=== PATIENT | male | born 1955 | race Caucasian/White ===

== ENCOUNTER 2019-03-07 11:01 | Outpatient (REF) | payer OTHER, SELFPAY ==
[2019-03-07 21:34] LABS: Anion Gap 9.7 mmol/L (3-11); BUN 27 mg/dL (7-18); CO2 26.3 mmol/L (21.0-32.0); CREATININE 1.26 mg/dL (0.70-1.30); Calcium 9.5 mg/dL (8.5-10.1); Chloride 109 mmol/L (98-107); Estimated GFR 58.18 (mL/min/1.73m2); Glucose 102 mg/dL (70-100); Potassium 4.5 mmol/L (3.5-5.1); Sodium 145 mmol/L (136-145)
[2019-03-07 21:35] LABS: Hemoglobin A1C 5.9 % (4.5-6.2)
[2019-03-21 15:58] LABS: Source: Kidney
[2019-03-21 16:00] LABS: Interpretation 100% Uric acid
== END 2019-03-07 11:21 ==
LOC: NCHCN 11:01
PROVIDERS: PCP Internal Medicine; Visit Provider Internal Medicine
DX: I10 Essential (primary) hypertension (principal); Z87.442 Personal history of urinary calculi
CPT/HCPCS: 80048; 82365; 83036

== ENCOUNTER 2019-09-06 12:11 | Outpatient (REF) | payer OTHER, SELFPAY ==
[2019-09-06 20:56] LABS: Hemoglobin A1C 5.9 % (3.8-5.6)
[2019-09-06 21:03] LABS: Anion Gap 7.9 mmol/L (3-11); BUN 29 mg/dL (7-18); CO2 28.1 mmol/L (21.0-32.0); CREATININE 1.42 mg/dL (0.70-1.30); Calcium 9.7 mg/dL (8.5-10.1); Chloride 109 mmol/L (98-107); Estimated GFR 50.52 (mL/min/1.73m2); Glucose 103 mg/dL (74-106); Potassium 5.3 mmol/L (3.5-5.1); Sodium 145 mmol/L (136-145); Uric Acid 7.4 mg/dL (3.5-7.2)
[2019-09-08 10:57] LABS: Hepatitis C Ab w Rflx HCV PCR Negative (Negative)
== END 2019-09-06 12:31 ==
LOC: NCHCN 12:11
PROVIDERS: PCP Internal Medicine; Visit Provider Family Medicine
DX: I10 Essential (primary) hypertension (principal); N18.3 Chronic kidney disease, stage 3 (moderate); E66.9 Obesity, unspecified; Z87.442 Personal history of urinary calculi; M25.561 Pain in right knee; Z11.59 Encounter for screening for other viral diseases
CPT/HCPCS: 80048; 86803; 83036; 84550

== ENCOUNTER 2020-02-27 10:43 | Outpatient (REF) | payer OTHER, SELFPAY ==
[2020-02-27 21:06] LABS: Anion Gap 9.4 mmol/L (3-11); BUN 26 mg/dL (7-18); CO2 26.6 mmol/L (21.0-32.0); CREATININE 1.16 mg/dL (0.70-1.30); Calcium 9.4 mg/dL (8.5-10.1); Chloride 107 mmol/L (98-107); Glucose 108 mg/dL (74-106); Potassium 4.1 mmol/L (3.5-5.1); Sodium 143 mmol/L (136-145); Uric Acid 6.5 mg/dL (3.5-7.2)
== END 2020-02-27 11:03 ==
LOC: NCHCN 10:43
PROVIDERS: PCP Internal Medicine; Visit Provider Internal Medicine
DX: I10 Essential (primary) hypertension (principal); M25.511 Pain in right shoulder
CPT/HCPCS: 80048; 84550

== ENCOUNTER 2020-08-30 14:23 | Outpatient (REF) | payer OTHER, SELFPAY ==
[2020-08-30 13:09] LABS: HCT 39.7 % (40.0-50.0); HGB 13.5 g/dL (13.5-17.5); MCH 29.9 pg (27.0-33.0); MCV 87.8 fL (80-95); MPV 9.5 fL (8.0-11.0); Platelet Count 275 10^3/uL (130-400); RBC 4.52 10^6/uL (4.36-5.78); RDW 11.8 % (11.8-14.1); RDW-SD 37.8 fL; WBC 6.68 10^3/uL (4.4-10.8)
[2020-08-30 13:19] LABS: Anion Gap 9.5 mmol/L (3-11); BUN 21 mg/dL (7-18); CO2 26.5 mmol/L (21.0-32.0); CREATININE 1.1 mg/dL (0.70-1.30); Calcium 9.7 mg/dL (8.5-10.1); Chloride 106 mmol/L (98-107); Glucose 107 mg/dL (74-106); Potassium 4.2 mmol/L (3.5-5.1); Sodium 142 mmol/L (136-145); Uric Acid 6.4 mg/dL (3.5-7.2)
[2020-08-30 13:23] LABS: Hemoglobin A1C 5.9 % (<5.7)
[2020-08-30 18:51] LABS: ESR 14 mm/hr (<or=20)
[2020-08-31 11:00] LABS: Lyme Ab w Rflx to Lyme Confirm Negative (Negative)
== END 2020-08-30 14:24 | disposition home or self-care (01) ==
LOC: NCHCN 14:23
PROVIDERS: PCP Internal Medicine; Visit Provider Internal Medicine
DX: Z00.00 Encounter for general adult medical examination without abnormal findings (principal); R73.03 Prediabetes; I10 Essential (primary) hypertension; N18.30 Chronic kidney disease, stage 3 unspecified; Z87.442 Personal history of urinary calculi; M75.102 Unspecified rotator cuff tear or rupture of left shoulder, not specified as traumatic; M19.90 Unspecified osteoarthritis, unspecified site
CPT/HCPCS: 80048; 85027; 85652; 83036; 84550; 86618

== ENCOUNTER 2021-02-05 11:12 | Outpatient (REF) | payer OTHER, SELFPAY ==
[2021-02-05 13:46] LABS: Creatine Kinase 71 U/L (39-308); TSH (W/Ref FT4) 1.05 uIU/mL (0.36-3.74)
[2021-02-06 10:30] LABS: Lyme Ab w Rflx to Lyme Confirm Negative (Negative)
[2021-02-07 00:19] LABS: Anaplasma phagocytophilum Negative (Negative); B. miyamotoi PCR Negative (Negative); Babesia divergens/MO-1 Negative (Negative); Babesia duncani Negative (Negative); Babesia microti Negative (Negative); Ehrlichia chaffeensis Negative (Negative); Ehrlichia ewingii/canis Negative (Negative); Ehrlichia muris eauclairensis Negative (Negative)
== END 2021-02-05 11:13 | disposition home or self-care (01) ==
LOC: NCHCN 11:12
PROVIDERS: PCP Internal Medicine; Visit Provider Family Medicine
DX: M79.10 Myalgia, unspecified site (principal); R40.0 Somnolence; N40.1 Benign prostatic hyperplasia with lower urinary tract symptoms
CPT/HCPCS: 82550; 87798; 84443; 86618

== ENCOUNTER 2021-03-22 04:21 | Outpatient (CLI) | payer OTHER, SELFPAY ==
--- NOTE | 2021-03-22 13:55 | DI.RAD_ITS ---
Exam(s) XR ORBITS EXAM: XR ORBITS INDICATION: FOREIGN BODY T15.90XA. COMPARISON: No exams were available for comparison TECHNIQUE: 2D digital imaging was performed. FINDINGS: No fracture or radiopaque foreign body is seen. Sinuses appear clear as visualized. IMPRESSION: Negative orbits. DATA REPOSITORY: RADIATION DOSE DELIVERED:
== END 2021-03-22 04:41 ==
PROVIDERS: PCP Internal Medicine; Visit Provider Nurse Practitioner Acute Care
DX: T15.90XA Foreign body on external eye, part unspecified, unspecified eye, initial encounter (principal)
CPT/HCPCS: 70200

== ENCOUNTER 2021-09-02 20:05 | Outpatient (REF) | payer OTHER, SELFPAY ==
[2021-09-02 15:04] LABS: Hemoglobin A1C 5.9 % (<5.7)
[2021-09-02 15:05] LABS: ALT 23 U/L (16-63); AST 9 U/L (15-37); Albumin 3.5 g/dL (3.4-5.0); Alkaline Phosphatase 77 U/L (46-116); Anion Gap 9.4 mmol/L (3-11); BUN 25 mg/dL (7-18); Bilirubin, Total 0.4 mg/dL (0.2-1.0); CO2 28.6 mmol/L (21.0-32.0); CREATININE 1.1 mg/dL (0.70-1.30); Calcium 9.6 mg/dL (8.5-10.1); Chloride 106 mmol/L (98-107); Glucose 105 mg/dL (74-106); Potassium 4.4 mmol/L (3.5-5.1); Sodium 144 mmol/L (136-145); Total Protein 7.4 g/dL (6.4-8.2)
== END 2021-09-02 20:06 | disposition home or self-care (01) ==
LOC: NCHCN 20:05
PROVIDERS: PCP Internal Medicine; Visit Provider Family Medicine
DX: I10 Essential (primary) hypertension (principal); R73.03 Prediabetes; Z87.442 Personal history of urinary calculi
CPT/HCPCS: 80053; 83036; 84550

== ENCOUNTER 2021-10-24 18:00 | Day surgery (SDC) | payer OTHER, SELFPAY ==
[2021-10-24 18:36] VITALS: BP 169/88; PULSE 85; RESP 18; TEMP 37.3; O2SAT 100
--- NOTE | 2021-10-24 19:45 | DI.CT_ITS ---
Exam(s) CT ABDOMEN PELVIS WO EXAM: CT ABDOMEN PELVIS WO CLINICAL HISTORY: right flank pain. TECHNIQUE: Imaging Protocol: Axial computed tomography images with coronal and sagittal reformatted images were created and reviewed. COMPARISON: CT RENAL COLIC WO CONTRAST from 03/04/2013 FINDINGS: ABDOMEN: Lung Bases: Coronary artery calcifications are present. Liver: Normal density. No measurable mass. Gallbladder and biliary tract: Cholelithiasis. No biliary ductal dilatation. Pancreas: Normal density, no abnormal calcifications or inflammatory process. Spleen: Normal. Kidneys: Normal size, contour and axis.Bilateral nephrolithiasis. There appear to be 2 adjacent ston es at the left UPJ causing moderate hydronephrosis. The measures 7 mm in aggregate. No masses seen. There is also mild to moderate dilatation of the right renal collecting system but no obstructing st one is present. A recently passed stone may have this appearance. Adrenal glands: No mass is seen. Lymph nodes: Within normal limits. Abdominal Aorta: Abdominal portion non-dilated. Atherosclerosis. PELVIS: Bladder:Symmetric distention, no gross wall thickening. Bowel: No obstruction or bowel wall thickening. Appendix is unremarkable. There are diverticula scat tered throughout the colon, but no evidence of acute diverticulitis. Peritoneal cavity: No ascites, collection or mesenteric inflammatory response. No free air. Reproductive organs: Within normal limits. Bones: Within normal limits. Soft Tissues: There is a small fat containing umbilical hernia. Bilateral fat containing inguinal he rnias are present. IMPRESSION: 1. Obstructing stones at the left UPJ causing moderate hydronephrosis. 2. Dilatation of the right renal collecting system without evidence of a calcified stone. This may r epresent a recently passed stone, a very small stone or possible pyelonephritis. RADIATION DOSE DELIVERED: 1,227.36mGy.cm Total DLP DATA REPOSITORY: All CT scans at this facility are submitted to the National Radiology Data Registry (NRDR) Dose Index Registry (DIR) with the [employer] (ACR). RADIATION OPTIMIZATION: All CT scans at this facility use at least one of these dose optimization te chniques: automated exposure control; mA and/or kV adjustment per patient size (includes targeted exa ms where dose is matched to clinical indication); or iterative reconstruction.
[2021-10-24 19:50] LABS: Abs Immature Grans 0.03 10^3/uL (0.0-0.06); Absolute Basophil Count 0.04 10^3/uL (0.0-0.2); Absolute Eosinophil Count 0.15 10^3/uL (0.0-0.7); Absolute Lymphocyte Count 1.48 10^3/uL (1.2-3.4); Absolute Monocyte Count 0.74 10^3/uL (0.1-0.8); Absolute Neutrophil Count 6.45 10^3/uL (1.2-6.7); Basophils % 0.4; Eosinophils % 1.7; HCT 36.7 % (40.0-50.0); HGB 11.6 g/dL (13.5-17.5); Immature Grans % 0.3; Lymphocytes % 16.6; MCH 27.4 pg (27.0-33.0); MCHC 31.6 % (32.0-36.0); MCV 86.8 fL (80-95); MPV 8.7 fL (8.0-11.0); Monocytes % 8.3; Neutrophils % 72.7; Platelet Count 376 10^3/uL (130-400); RBC 4.23 10^6/uL (4.36-5.78); RDW 12.9 % (11.8-14.1); RDW-SD 40.6 fL; WBC 8.89 10^3/uL (4.4-10.8)
[2021-10-24 19:53] LABS: Bilirubin Negative (Negative); Blood Large (Negative); Clarity Clear (Clear); Glucose Negative (Negative); Ketones Negative (Negative); Leukocyte Esterase Small (Negative); Nitrite Negative (Negative); Specific Gravity 1.015 (1.005-1.025); Urobilinogen 0.2 EU/dL (Up TO 0.2)
[2021-10-24 20:02] LABS: ALT 26 U/L (16-63); AST 16 U/L (15-37); Albumin 3.7 g/dL (3.4-5.0); Alkaline Phosphatase 86 U/L (46-116); Anion Gap 11.5 mmol/L (3-11); BUN 32 mg/dL (7-18); Bilirubin, Total 0.4 mg/dL (0.2-1.0); CO2 25.5 mmol/L (21.0-32.0); Calcium 9.2 mg/dL (8.5-10.1); Chloride 102 mmol/L (98-107); Estimated GFR 13.98 (mL/min/1.73m2); Glucose 114 mg/dL (74-106); Lipase 582 U/L (73-393); Potassium 4.1 mmol/L (3.5-5.1); Sodium 139 mmol/L (136-145); Total Protein 8.3 g/dL (6.4-8.2)
[2021-10-24 20:03] LABS: CREATININE 4.3 mg/dL (0.70-1.30)
[2021-10-24 20:22] LABS: Bacteria Moderate HPF (Negative); C & S Indicated? Yes; Casts Negative LPF (Negative); Crystals Negative HPF (Negative); Epithelial Cells Few HPF (Negative); Mucus Negative (Negative); Other Cells Few Renal (Negative); RBC 20-50 HPF (0-2); WBC 20-50 HPF (0-5)
[2021-10-24] MEDS: Normal Saline 1,000 ML 1000 ML IV (20:24)
--- NOTE | 2021-10-24 21:24 | DI.VRAD_ITS ---
PROCEDURE INFORMATION: Exam: CT Abdomen And Pelvis Without Contrast Exam date and time: 10/24/2021 8:07 PM Age: 66 years old Clinical indication: Other: Right flank pain TECHNIQUE: Imaging protocol: Computed tomography of the abdomen and pelvis without contrast. COMPARISON: No relevant prior studies available. FINDINGS: Heart: Coronary artery calcifications/stents identified. Liver: Normal. No mass. Gallbladder and bile ducts: Gallstones. Pancreas: Normal. No ductal dilation. Spleen: Normal. No splenomegaly. Adrenal glands: Normal. No mass. Kidneys and ureters: There is bilateral perinephric edema. Tiny, nonobstructing bilateral renal calculi noted. There is mild right hydronephrosis and hydroureter. No obstructing calculus is seen. There is moderate left hydronephrosis. There is a proximal left ureteral obstructing calculus series 2 image 53 measuring up to 5 mm in diameter. Stomach and bowel: The stomach is decompressed. No abnormal small bowel distention. There is diverticulosis without acute diverticulitis. Appendix: No evidence of appendicitis. Intraperitoneal space: Unremarkable. No free air. No significant fluid collection. Arteries: Unremarkable. No abdominal aortic aneurysm. Lymph nodes: Unremarkable. No enlarged lymph nodes. Urinary bladder: The bladder is not well distended. Reproductive: Unremarkable as visualized. Bones/joints: Unremarkable. No acute fracture. Soft tissues: There are small, bilateral fat containing inguinal hernias. IMPRESSION: 1. Abnormal right renal findings suggesting recently passed calculus, calculus too small to characterize, or possible pyelonephritis. 2. Proximal left ureteral obstructing calculus. Dictated and Authenticated by: Karen Gerber MD. Ordering:JENNIFER Fairbanks MD
--- NOTE | 2021-10-24 22:07 | W.ED.GENAD ---
Discharge Plan Disposition Patient Disposition: [facility] INPATIENT Condition: Improving Discharge Details Clinical Impression: Left ureteral stone, Elevated serum creatinine Attending Provider: Jeff Mitchell Primary Care Provider: Julián Quispe Medical Decision Making Patient with obstructing proximal left ureteral stone with moderate hydronephrosis and suggestion right renal stone on CT abdomen pelvis without contrast Urinalysis of 22 white blood cells with moderate bacteria, concerning for infection Creatinine 4.3, secondary to obstructive uropathy bilaterally CBC within normal limits, vitals stable Received ceftriaxone and IV fluid resuscitation Case discussed with Dr. Mitchell, urology who agrees that patient is at the boarding Patient will be admitted to the hospital with a secondary to capacity state the emergency department overnight under the care of the hospitalist service, Dr. Sears Lactate is within normal limits Blood cultures pending Urinalysis will be sent for culture HPI General Date/Time Provider Initiated Documentation: 10/24/21 19:02. HPI Narrative: 66-year-old gentleman with history of chronic kidney disease, hypertension, BPH presents with report of inability to urinate and flank pain. Has a history of kidney said. He denies any fever or chills. He denies any current nausea or vomiting. He denies any chest pain or shortness of breath. He states he has been unable to urinate this morning. Has some mild suprapubic tenderness. Has had stents placed in the past. Related Data Home Medications Medication Instructions Recorded Confirmed allopurinol 100 mg tablet 50 mg PO DAILY tab 10/24/21 10/24/21 losartan 50 mg tablet 50 mg PO DAILY 10/24/21 10/24/21 ciprofloxacin HCl 250 mg tablet 250 mg PO BID #14 tab 10/25/21 (Cipro) phenazopyridine 200 mg tablet 200 mg PO TID PRN #10 tab 10/25/21 (Pyridium) tramadol 50 mg tablet 50 mg PO Q8H PRN #15 tab 10/25/21 Previous Rx's Medication Instructions Recorded ciprofloxacin HCl 250 mg tablet 250 mg PO BID #14 tab 10/25/21 (Cipro) phenazopyridine 200 mg tablet 200 mg PO TID PRN #10 tab 10/25/21 (Pyridium) tramadol 50 mg tablet 50 mg PO Q8H PRN #15 tab 10/25/21 Allergies Allergy/AdvReac Type Severity Reaction Status Date / Time No Known Allergies Allergy Unverified 10/24/21 18:43 General Stated Complaint: Urinary BRITNEY: 3 Review of Systems All systems reviewed & are unremarkable except as noted in HPI and below PFSH All Active Problems (Updated 10/26/21 @ 16:31 by LINDA Ibarra) RUQ abdominal mass (Acute) Elevated serum creatinine (Acute) Left ureteral stone (Acute) Obesity (Chronic) Venous insufficiency (Acute) Rotator cuff syndrome of left shoulder (Acute) Pain, joint, knee, right (Acute) Osteoarthritis (Chronic) Uric acid renal calculus (Acute) BPH w urinary obs/LUTS (Acute) Somnolence (Acute) Myalgia (Acute) Prediabetes (Acute) CKD (chronic kidney disease) (Chronic) HTN (hypertension) (Chronic) Social History Smoking/Tobacco Use Status: Never Smoking risk assessment performed?: Yes Alcohol Intake: never Drug use: Never Do you feel safe at home: Yes Do you feel safe in your relationship?: Yes Exam Const General: cooperative and no acute distress Eyes Pupils: PERRL Resp Effort & Inspection: normal respiratory effort Auscultation: clear to auscultation bilaterally Cardio Rate: regular rate Rhythm: regular rhythm GI Other: Mild bilateral CVA tenderness Skin General skin exam: no rashes or lesions noted Neuro General: patient alert and patient oriented x3 Course Vital Signs Vital signs: Vital Signs Temperature 37.3 C 10/24/21 18:36 Pulse 85 10/24/21 18:36 Respiratory Rate 18 10/24/21 18:36 Blood Pressure 169/88 H 10/24/21 18:36 Pulse Oximetry 100 10/24/21 18:36 Temperature 37.3 C 10/24/21 18:36 Temperature Source Skin 10/24/21 18:36 Pulse 85 10/24/21 18:36 Respiratory Rate 18 10/24/21 18:36 Respiratory Effort 10/24/21 18:45 Blood Pressure 169/88 H 10/24/21 18:36 Blood Pressure Position Sitting 10/24/21 18:36 Pulse Oximetry 100 10/24/21 18:36 Oxygen Delivery Method Room Air 10/24/21 18:36 Oxygen Flow Rate 0 10/24/21 18:36 Pain Level 7 10/24/21 18:46 Comment 10/24/21 18:36 Lab/Test Results Lab/Test Results: 10/24/21 19:33 Urine - Reflex from Ua Urine Culture - Pending Laboratory Tests Range/Units 10/24/21 10/24/21 10/24/21 19:33 19:43 19:43 WBC (4.4-10.8) 10^3/uL 8.89 RBC (4.36-5.78) 10^6/uL 4.23 L Hgb (13.5-17.5) g/dL 11.6 L Hct (40.0-50.0) % 36.7 L MCV (80-95) fL 86.8 MCH (27.0-33.0) pg 27.4 MCHC (32.0-36.0) % 31.6 L RDW (11.8-14.1) % 12.9 Plt Count (130-400) 10^3/uL 376 MPV (8.0-11.0) fL 8.7 Immature Gran % 0.3 Neutrophils % 72.7 Lymphocytes % 16.6 Monocytes % 8.3 Eosinophils % 1.7 Basophils % 0.4 Nucleated RBC % (0.0-0.3) % 0.0 Absolute Neutrophils (1.2-6.7) 10^3/uL 6.45 Absolute Lymphocytes (1.2-3.4) 10^3/uL 1.48 Absolute Monocytes (0.1-0.8) 10^3/uL 0.74 Absolute Eosinophils (0.0-0.7) 10^3/uL 0.15 Absolute Basophils (0.0-0.2) 10^3/uL 0.04 Sodium (136-145) mmol/L 139 Potassium (3.5-5.1) mmol/L 4.1 Chloride (98-107) mmol/L 102 Carbon Dioxide (21.0-32.0) mmol/L 25.5 Anion Gap (3-11) mmol/L 11.5 H BUN (7-18) mg/dL 32 H Creatinine (0.70-1.30) mg/dL 4.3 H* Estimated GFR/1.73 m2 (mL/min/1.73m2) 13.98 Glucose (74-106) mg/dL 114 H Calcium (8.5-10.1) mg/dL 9.2 Total Bilirubin (0.2-1.0) mg/dL 0.4 AST (15-37) U/L 16 ALT (16-63) U/L 26 Alkaline Phosphatase (46-116) U/L 86 Total Protein (6.4-8.2) g/dL 8.3 H Albumin (3.4-5.0) g/dL 3.7 Lipase (73-393) U/L 582 H Urine Color (Yellow) Yellow Urine Clarity (Clear) Clear Urine pH (5-8) 6.0 Ur Specific [place] (1.005-1.025) 1.015 Urine Protein (Negative) mg/dL 30 H Urine Ketones (Negative) mg/dL Negative Urine Blood (Negative) Large H Urine Nitrite (Negative) Negative Urine Bilirubin (Negative) Negative Urine Urobilinogen (Up TO 0.2) EU/dL 0.2 Ur Leukocyte Esterase (Negative) Small H Urine RBC (0-2) HPF 20-50 H Urine WBC (0-5) HPF 20-50 H Ur Epithelial Cells (Negative) HPF Few Urine Crystals (Negative) HPF Negative Urine Bacteria (Negative) HPF Moderate Urine Casts (Negative) LPF Negative Urine Mucus (Negative) Negative Urine Other (Negative) Few Renal Ur Culture Indicated? Yes Urine Glucose (Negative) mg/dL Negative
[2021-10-24] MEDS: cefTRIAXone 2 GM/50 ML BAG IVPB (22:34)
[2021-10-24 22:43] LABS: Lactate 0.8 mmol/L (0.6-1.4)
[2021-10-24 23:04] LABS: Source Nasal/Nares
[2021-10-24 23:17] VITALS: BP 166/92; PULSE 78; TEMP 37; O2SAT 100
[2021-10-24] MEDS: Ketorolac 15 MG/ML VIAL IVP (23:32)
[2021-10-24 23:47] LABS: COVID-19 PCR Negative (Negative)
[2021-10-25] VITALS (7 sets, daily range): BP systolic 139–158; BP diastolic 64–86; PULSE 66–73; RESP 16–18; TEMP 36.5–36.7; O2SAT 98–100; BMI 18.4
[2021-10-25] MEDS: Normal Saline 1,000 ML 125 ML IV (00:20)
[2021-10-25] MEDS: Enoxaparin 30 MG/0.3 ML SYR SC (00:20)
[2021-10-25 05:52] LABS: Abs Immature Grans 0.02 10^3/uL (0.0-0.06); Absolute Basophil Count 0.04 10^3/uL (0.0-0.2); Absolute Eosinophil Count 0.22 10^3/uL (0.0-0.7); Absolute Lymphocyte Count 1.54 10^3/uL (1.2-3.4); Absolute Monocyte Count 0.46 10^3/uL (0.1-0.8); Absolute Neutrophil Count 3.32 10^3/uL (1.2-6.7); Basophils % 0.7; Eosinophils % 3.9; HCT 32.7 % (40.0-50.0); HGB 10.6 g/dL (13.5-17.5); Immature Grans % 0.4; Lymphocytes % 27.5; MCHC 32.4 % (32.0-36.0); MCV 86.3 fL (80-95); MPV 8.6 fL (8.0-11.0); Monocytes % 8.2; Neutrophils % 59.3; Platelet Count 293 10^3/uL (130-400); RBC 3.79 10^6/uL (4.36-5.78); RDW 12.7 % (11.8-14.1); RDW-SD 40.5 fL
[2021-10-25 05:57] LABS: Anion Gap 10.6 mmol/L (3-11); BUN 38 mg/dL (7-18); CO2 24.4 mmol/L (21.0-32.0); Calcium 8.7 mg/dL (8.5-10.1); Chloride 109 mmol/L (98-107); Estimated GFR 16.62 (mL/min/1.73m2); Glucose 99 mg/dL (74-106); Potassium 4.3 mmol/L (3.5-5.1); Sodium 144 mmol/L (136-145)
[2021-10-25 06:04] LABS: CREATININE 3.7 mg/dL (0.70-1.30)
--- NOTE | 2021-10-25 06:30 | HPE_ITS ---
Date of service: 10/24/21 Time of Service: 23:00 Assessment and Plan Assessment and plan (1) Elevated serum creatinine: Status: Acute Assessment and plan: It appears that he is passed a right-sided stone and there is evidence of bilateral hydronephrosis with a high left-sided stone. This is likely the cause of his elevated creatinine. He is producing urine now. He will be given intravenous fluids and his labs will be checked in the morning. (2) Left ureteral stone: Status: Acute Assessment and plan: This stone is causing hydronephrosis on the left. Urology has been consulted and he will be taken the operating room in the morning on August 27 for a stent placement. He has received ceftriaxone and this will be continued. No culture is pending. A lactate and blood cultures have been drawn. (3) Uric acid renal calculus: Status: Acute Assessment and plan: He is taking 50 mg of allopurinol. This is a low dose. If he can tolerate a higher dose this may be worth considering if his new stones are uric acid stones. (4) RUQ abdominal mass: Status: Acute Assessment and plan: This right upper quadrant mass was found on exam last night. It may be a subcut aneous lipoma or other benign problem. I have reviewed his CT scan and I do not see anything abnormal there in regards to the right upper quadrant. I have passed this information on to the day hospitalist for follow-up. History of Present Illness History of Present Illness Chief Complaint: flank and abdominal pain Narrative: This 66-year-old male is here with flank pain. He has a history of urolithiasis since he was 26 years old. Stones were initially calcium in origin but others stones have been analyzed to be uric acid stones. He developed some left flank and abdominal pain about 1 week earlier and then developed right-sided pain 2 to 3 days before coming here. He has had no urinary symptoms now. He has had some nausea and vomiting but no chills or fever. In 2012 he had a lithotripsy here. In the emergency department he was evaluated and found to have an elevated creatinine of over [address] scan with a high ureteropelvic junction stone on one side. Urology was contacted and the plan is to put a stent on October 25. He was given intravenous fluids, ceftriaxone and ketorolac. There were no [facility] beds available so I was asked to see him in the emergency department and managed his care in the department. Review of Systems Constitutional Constitutional: Denies chills, Denies fever(s) and Denies weakness Cardiovascular Cardiovascular: Denies chest pain, Denies rapid heart rate, Denies leg edema and Denies dyspnea Respiratory Respiratory: Denies cough, Denies dyspnea and Denies wheezing Gastrointestinal Gastrointestinal: Reports abdominal pain, Denies constipation, Denies loose stools, Reports nausea and Reports vomiting Genitourinary Genitourinary: Reports oliguria, Reports difficulty urinating, Denies urinary frequency, Denies urinary incontinence and Denies urinary urgency Musculoskeletal Musculoskeletal: Reports back pain Neurologic Neurologic: Denies abnormal speech and Denies weakness Allergic/Immunologic Allergic/Immunologic: Denies wheezing PFSH All Active Problems (Updated 10/25/21 @ 07:28 by Alberto Bobby MD) RUQ abdominal mass (Acute) Elevated serum creatinine (Acute) Left ureteral stone (Acute) Obesity (Chronic) Venous insufficiency (Acute) Rotator cuff syndrome of left shoulder (Acute) Pain, joint, knee, right (Acute) Osteoarthritis (Chronic) Uric acid renal calculus (Acute) BPH w urinary obs/LUTS (Acute) Somnolence (Acute) Myalgia (Acute) Prediabetes (Acute) CKD (chronic kidney disease) (Chronic) HTN (hypertension) (Chronic) Social History Smoking/Tobacco Use Status: Never Smoking risk assessment performed?: Yes Alcohol Intake: never Drug use: Never Do you feel safe at home: Yes Do you feel safe in your relationship?: Yes Meds Allergies and Home Medications Allergies Allergy/AdvReac Type Severity Reaction Status Date / Time No Known Allergies Allergy Unverified 10/24/21 18:43 Home Medications Medication Instructions Recorded Confirmed Type allopurinol 100 mg tablet 50 mg PO DAILY tab 10/24/21 10/24/21 History losartan 50 mg tablet 50 mg PO DAILY 10/24/21 10/24/21 History Exam Const General: cooperative, comfortable, no acute distress, not anxious, not diaphor etic and not lethargic Nutritional Appearance: overweight Neck Neck: normal visual inspection and no lymphadenopathy Resp Auscultation: clear to auscultation bilaterally and no wheezes Cardio Rate: regular rate Rhythm: regular rhythm Heart Sounds: S1 normal, S2 normal, no gallops and no murmurs GI Palpation: soft, no hepatosplenomegaly and not firm Other: In the right upper quadrant just under the costal margin there is a mass that is nontender but firm that measures about 3 to 4 cm in diameter. It is located in that clavicular line. Extrem General: normal to inspection and no pedal edema Results Labs Result diagrams: 10/25/21 05:38 10/25/21 05:38 Labs: Laboratory Results - last 24 hr 10/24/21 10/24/21 10/24/21 19:33 19:43 19:43 WBC 8.89 RBC 4.23 L Hgb 11.6 L Hct 36.7 L MCV 86.8 MCH 27.4 MCHC 31.6 L RDW 12.9 Plt Count 376 MPV 8.7 Immature Gran % 0.3 Neutrophils % 72.7 Lymphocytes % 16.6 Monocytes % 8.3 Eosinophils % 1.7 Basophils % 0.4 Nucleated RBC % 0.0 Absolute Neutrophils 6.45 Absolute Lymphocytes 1.48 Absolute Monocytes 0.74 Absolute Eosinophils 0.15 Absolute Basophils 0.04 VBG Lactate Sodium 139 Potassium 4.1 Chloride 102 Carbon Dioxide 25.5 Anion Gap 11.5 H BUN 32 H Creatinine 4.3 H* Estimated GFR/1.73 m2 13.98 Glucose 114 H Calcium 9.2 Total Bilirubin 0.4 AST 16 ALT 26 Alkaline Phosphatase 86 Total Protein 8.3 H Albumin 3.7 Lipase 582 H Urine Color Yellow Urine Clarity Clear Urine pH 6.0 Ur Specific [place] 1.015 Urine Protein 30 H Urine Ketones Negative Urine Blood Large H Urine Nitrite Negative Urine Bilirubin Negative Urine Urobilinogen 0.2 Ur Leukocyte Esterase Small H Urine RBC 20-50 H Urine WBC 20-50 H Ur Epithelial Cells Few Urine Crystals Negative Urine Bacteria Moderate Urine Casts Negative Urine Mucus Negative Urine Other Few Renal Ur Culture Indicated? Yes Urine Glucose Negative COVID-19 Source SARS-CoV-2 (PCR) 10/24/21 10/24/21 10/25/21 22:30 22:55 05:38 WBC RBC Hgb Hct MCV MCH MCHC RDW Plt Count MPV Immature Gran % Neutrophils % Lymphocytes % Monocytes % Eosinophils % Basophils % Nucleated RBC % Absolute Neutrophils Absolute Lymphocytes Absolute Monocytes Absolute Eosinophils Absolute Basophils VBG Lactate 0.8 Sodium 144 Potassium 4.3 Chloride 109 H Carbon Dioxide 24.4 Anion Gap 10.6 BUN 38 H Creatinine 3.7 H* Estimated GFR/1.73 m2 16.62 Glucose 99 Calcium 8.7 Total Bilirubin AST ALT Alkaline Phosphatase Total Protein Albumin Lipase Urine Color Urine Clarity Urine pH Ur Specific [place] Urine Protein Urine Ketones Urine Blood Urine Nitrite Urine Bilirubin Urine Urobilinogen Ur Leukocyte Esterase Urine RBC Urine WBC Ur Epithelial Cells Urine Crystals Urine Bacteria Urine Casts Urine Mucus Urine Other Ur Culture Indicated? Urine Glucose COVID-19 Source Nasal/Nares SARS-CoV-2 (PCR) Negative 10/25/21 05:38 WBC 5.60 D RBC 3.79 L Hgb 10.6 L Hct 32.7 L MCV 86.3 MCH 28.0 MCHC 32.4 RDW 12.7 Plt Count 293 MPV 8.6 Immature Gran % 0.4 Neutrophils % 59.3 Lymphocytes % 27.5 Monocytes % 8.2 Eosinophils % 3.9 Basophils % 0.7 Nucleated RBC % 0.0 Absolute Neutrophils 3.32 Absolute Lymphocytes 1.54 Absolute Monocytes 0.46 Absolute Eosinophils 0.22 Absolute Basophils 0.04 VBG Lactate Sodium Potassium Chloride Carbon Dioxide Anion Gap BUN Creatinine Estimated GFR/1.73 m2 Glucose Calcium Total Bilirubin AST ALT Alkaline Phosphatase Total Protein Albumin Lipase Urine Color Urine Clarity Urine pH Ur Specific [place] Urine Protein Urine Ketones Urine Blood Urine Nitrite Urine Bilirubin Urine Urobilinogen Ur Leukocyte Esterase Urine RBC Urine WBC Ur Epithelial Cells Urine Crystals Urine Bacteria Urine Casts Urine Mucus Urine Other Ur Culture Indicated? Urine Glucose COVID-19 Source SARS-CoV-2 (PCR) Last Vital Signs Temp 37.0 C 10/24/21 23:17 Pulse 78 10/24/21 23:17 Resp 18 10/24/21 18:36 BP 166/92 H 10/24/21 23:17 Pulse Ox 100 10/24/21 23:17
--- NOTE | 2021-10-25 07:06 | W.ANESPRE ---
General Info Date of Service Date Performed: 10/25/21 Height: 6 ft Weight: 61.689 kg Body Mass Index (BMI): 18.4 Surgical Procedure: Operation Date: 10/25/21 07:40 Proposed Procedure Side Surgeon p Cystoscopy/Retrograde/LT Stent Left Jeff Mitchell MD s Cystoscopy with Stent Insertion Left Jeff Mitchell MD Meds Allergies and Home Medications Allergies Allergy/AdvReac Type Severity Reaction Status Date / Time No Known Allergies Allergy Unverified 10/24/21 18:43 Home Medication Medication Instructions Recorded allopurinol 100 mg tablet 50 mg PO DAILY tab 10/24/21 losartan 50 mg tablet 50 mg PO DAILY 10/24/21 Current Visit Medications: Current Medications Generic Name Dose Route Start Last Admin Trade Name Freq PRN Reason Stop Dose Admin Allopurinol 50 mg 10/25/21 08:30 Allopurinol 100 Mg Tab PO DAILY DAVE Dimethicone/Zinc Oxide 0 gm 10/24/21 23:44 Maegan Protect Cream 142 Gm Tube TP PRN PRN Enoxaparin Sodium 30 mg 10/24/21 23:45 10/25/21 00:20 Enoxaparin 30 Mg/0.3 Ml Syr SC 30 mg Q24H DAVE Administration Sodium Chloride 1,000 mls @ 125 mls/hr 10/24/21 23:45 10/25/21 00:20 Saline 1000ml Bag IV 125 mls/hr INFUSION DAVE Administration PFSH Active Problems Active Problems: Problem Status Onset Code Obesity E66.9 Venous insufficiency I87.2 Rotator cuff syndrome of left shoulder M75.102 Pain, joint, knee, right M25.561 Osteoarthritis M19.90 Uric acid renal calculus N20.0 BPH w urinary obs/LUTS N40.1, N13.8 Somnolence R40.0 Myalgia M79.10 Prediabetes R73.03 CKD (chronic kidney disease) N18.9 HTN (hypertension) I10 Tobacco Smoking/Tobacco Use Status: Never Alcohol Alcohol Intake: never Substance Use Substance use: Never Vital Signs and Lab Results Vital Signs Most Recent Vital Signs in EMR: Most Recent Vital Signs Temp Pulse Resp BP Pulse Ox 37.0 C 78 18 166/92 H 100 10/24/21 23:17 10/24/21 23:17 10/24/21 18:36 10/24/21 23:17 10/24/21 23:17 Lab Results Result Diagrams: 10/25/21 05:38 10/25/21 05:38 Blood Type / Crossmatch: No Data to Display Complete Blood Count: White Blood Count 5.60 10^3/uL (4.4-10.8) 10/25/21 05:38 10/25/21 Red Blood Count 3.79 10^6/uL (4.36-5.78) L 10/25/21 05:38 10/25/21 Hemoglobin 10.6 g/dL (13.5-17.5) L 10/25/21 05:38 10/25/21 Hematocrit 32.7 % (40.0-50.0) L 10/25/21 05:38 10/25/21 Platelet Count 293 10^3/uL (130-400) 10/25/21 05:38 10/25/21 Venous Blood Lactate 0.8 mmol/L (0.6-1.4) 10/24/21 22:30 10/24/21 Complete Metabolic Panel: Sodium Level 144 mmol/L (136-145) 10/25/21 05:38 10/25/21 Potassium Level 4.3 mmol/L (3.5-5.1) 10/25/21 05:38 10/25/21 Chloride Level 109 mmol/L (98-107) H 10/25/21 05:38 10/25/21 Carbon Dioxide Level 24.4 mmol/L (21.0-32.0) 10/25/21 05:38 10/25/21 Blood Urea Nitrogen 38 mg/dL (7-18) H 10/25/21 05:38 10/25/21 Creatinine 3.7 mg/dL (0.70-1.30) H* 10/25/21 05:38 10/25/21 Estimated GFR/1.73 m2 16.62 (mL/min/1.73m2) 10/25/21 05:38 10/25/21 Calcium Level 8.7 mg/dL (8.5-10.1) 10/25/21 05:38 10/25/21 Albumin 3.7 g/dL (3.4-5.0) 10/24/21 19:43 10/24/21 Glucose Level 99 mg/dL (74-106) 10/25/21 05:38 10/25/21 Liver Function Panel: Alanine Aminotransferase (ALT/SGPT) 26 U/L (16-63) 10/24/21 19:43 10/24/21 Aspartate Amino Transf (AST/SGOT) 16 U/L (15-37) 10/24/21 19:43 10/24/21 Coagulation Panel: No Data to Display Cardiac Panel: No Data to Display Arterial Blood Gas: No Data to Display Venous Blood Gas: No Data to Display Pancreas Panel: Lipase 582 U/L (73-393) H 10/24/21 19:43 10/24/21 Thyroid Panel: No Data to Display Infectious Disease: Coronavirus (COVID-19)(PCR) Negative (Negative) 10/24/21 22:55 10/24/21 Coronavirus 2019 Source Nasal/Nares 10/24/21 22:55 10/24/21 Blood Cultures: No Data to Display Toxicology Panel: No Data to Display Anesthesia Assessment and Plan Anesthesia History Personal History: No History of Anesthesia Complications Family History: No Family History of Anesthesia Complications Exercise Tolerance Exercise Tolerance: Metabolic Equivalents>4 Pertinent Negatives Pertinent Negatives: No Symptoms of GERD Cardiac & Pulmonary Exam Cardiac Exam: Normal S1/S2 Heart Sounds Pulmonary Exam: Clear Bilateral Breath Sounds Implantable Cardiac Device Does patient have a Pacemaker or an ICD?: No Airway Exam Known Difficult Airway: No Mallampati Class: 2 Mouth Opening: Normal (> 3cm) Thyromental Distance: Less than 3 cm Neck Range of Motion: Full ROM Neck Circumference: Normal Teeth Condition: Normal Dentition ASA Classification ASA Score: ASA 4 Emergency Case?: Yes NPO Status NPO Status: NPO Clears >2 hours, Solids >8 hours Anesthesia Plan Resuscitation Status: Full Code Anesthesia Technique: General Anesthesia Airway Planned: Natural Airway Monitors Used: Standard Monitors
--- NOTE | 2021-10-25 07:17 | W.UROLOGYCON ---
Date of service: 10/25/21 Time of Service: 07:17 Assessment and Plan Assessment and plan (1) Left ureteral stone: Status: Acute Assessment and plan: We will bring him to the operating room urgently to place a left ureteral stent. Since he is improving clinically, he will likely be discharged after the procedure and we will plan close outpatient followup of his serum creatinine. Once his creatinine normalizes, we may need to return to the OR for ureteroscopy definitive treatment of his stone. (2) Elevated serum creatinine: Status: Acute History of Present Illness History of Present Illness Chief Complaint: Left ureteral stone Narrative: This is a 66-year-old gentleman with a long history of kidney stones dating back to age 22. He believes that his initial stones were calcium oxalate. Since then, the stones have been uric acid. He has required ureteroscopy and stent placement for his stones previously. He has passed s spontaneously as well. He presented to our emergency department last evening with an inability to urinate. His serum creatinine was 4. He was evaluated with a CT scan and was found to have a recently passed right ureteral stone as well as an obstructing left ureteral stone. No beds were available at our institution or any neighboring facilities. Spoke with the he remained in the emergency department overnight. His serum creatinine improved slightly with hydration. He is agreeable to placement of a ureteral stent to relieve the left hydronephrosis. On admission, his urinalysis was worrisome for urinary tract infection. He showed no signs or symptoms of sepsis. He was given a dose of ceftriaxone last evening. He had no serum white blood count elevation. Review of Systems Narrative: No fevers or chills No vision change or dysphasia No diabetes or thyroid dysfunction No shortness of breath, cough or hemoptysis No chest pain or palpitations Hx lipase elevation. No nausea, vomiting, hepatitis, ulcers, jaundice No seizures, strokes or peripheral neuropathy No bleeding disorders or anemia Arthralgia shoulders/right knee PFSH All Active Problems (Updated 10/25/21 @ 07:24 by Jeff Mitchell MD) Elevated serum creatinine (Acute) Left ureteral stone (Acute) Obesity (Chronic) Venous insufficiency (Acute) Rotator cuff syndrome of left shoulder (Acute) Pain, joint, knee, right (Acute) Osteoarthritis (Chronic) Uric acid renal calculus (Acute) BPH w urinary obs/LUTS (Acute) Somnolence (Acute) Myalgia (Acute) Prediabetes (Acute) CKD (chronic kidney disease) (Chronic) HTN (hypertension) (Chronic) Social History Smoking/Tobacco Use Status: Never Smoking risk assessment performed?: Yes Alcohol Intake: never Drug use: Never Do you feel safe at home: Yes Do you feel safe in your relationship?: Yes Exam Const General: cooperative and comfortable Neck Neck: supple Resp Effort & Inspection: normal respiratory effort Auscultation: clear to auscultation bilaterally Cardio Rate: regular rate Rhythm: regular rhythm GI Palpation: soft and no guarding Neuro General: patient alert, patient awake and patient oriented x3 Results Last Vital Signs Temp 37.0 C 10/24/21 23:17 Pulse 78 10/24/21 23:17 Resp 18 10/24/21 18:36 BP 166/92 H 10/24/21 23:17 Pulse Ox 100 10/24/21 23:17 Labs Result diagrams: 10/25/21 05:38 10/25/21 05:38 Labs: Laboratory Results - last 24 hr 10/24/21 10/24/21 10/24/21 19:33 19:43 19:43 WBC 8.89 RBC 4.23 L Hgb 11.6 L Hct 36.7 L MCV 86.8 MCH 27.4 MCHC 31.6 L RDW 12.9 Plt Count 376 MPV 8.7 Immature Gran % 0.3 Neutrophils % 72.7 Lymphocytes % 16.6 Monocytes % 8.3 Eosinophils % 1.7 Basophils % 0.4 Nucleated RBC % 0.0 Absolute Neutrophils 6.45 Absolute Lymphocytes 1.48 Absolute Monocytes 0.74 Absolute Eosinophils 0.15 Absolute Basophils 0.04 VBG Lactate Sodium 139 Potassium 4.1 Chloride 102 Carbon Dioxide 25.5 Anion Gap 11.5 H BUN 32 H Creatinine 4.3 H* Estimated GFR/1.73 m2 13.98 Glucose 114 H Calcium 9.2 Total Bilirubin 0.4 AST 16 ALT 26 Alkaline Phosphatase 86 Total Protein 8.3 H Albumin 3.7 Lipase 582 H Urine Color Yellow Urine Clarity Clear Urine pH 6.0 Ur Specific [place] 1.015 Urine Protein 30 H Urine Ketones Negative Urine Blood Large H Urine Nitrite Negative Urine Bilirubin Negative Urine Urobilinogen 0.2 Ur Leukocyte Esterase Small H Urine RBC 20-50 H Urine WBC 20-50 H Ur Epithelial Cells Few Urine Crystals Negative Urine Bacteria Moderate Urine Casts Negative Urine Mucus Negative Urine Other Few Renal Ur Culture Indicated? Yes Urine Glucose Negative COVID-19 Source SARS-CoV-2 (PCR) 10/24/21 10/24/21 10/25/21 22:30 22:55 05:38 WBC RBC Hgb Hct MCV MCH MCHC RDW Plt Count MPV Immature Gran % Neutrophils % Lymphocytes % Monocytes % Eosinophils % Basophils % Nucleated RBC % Absolute Neutrophils Absolute Lymphocytes Absolute Monocytes Absolute Eosinophils Absolute Basophils VBG Lactate 0.8 Sodium 144 Potassium 4.3 Chloride 109 H Carbon Dioxide 24.4 Anion Gap 10.6 BUN 38 H Creatinine 3.7 H* Estimated GFR/1.73 m2 16.62 Glucose 99 Calcium 8.7 Total Bilirubin AST ALT Alkaline Phosphatase Total Protein Albumin Lipase Urine Color Urine Clarity Urine pH Ur Specific [place] Urine Protein Urine Ketones Urine Blood Urine Nitrite Urine Bilirubin Urine Urobilinogen Ur Leukocyte Esterase Urine RBC Urine WBC Ur Epithelial Cells Urine Crystals Urine Bacteria Urine Casts Urine Mucus Urine Other Ur Culture Indicated? Urine Glucose COVID-19 Source Nasal/Nares SARS-CoV-2 (PCR) Negative 10/25/21 05:38 WBC 5.60 D RBC 3.79 L Hgb 10.6 L Hct 32.7 L MCV 86.3 MCH 28.0 MCHC 32.4 RDW 12.7 Plt Count 293 MPV 8.6 Immature Gran % 0.4 Neutrophils % 59.3 Lymphocytes % 27.5 Monocytes % 8.2 Eosinophils % 3.9 Basophils % 0.7 Nucleated RBC % 0.0 Absolute Neutrophils 3.32 Absolute Lymphocytes 1.54 Absolute Monocytes 0.46 Absolute Eosinophils 0.22 Absolute Basophils 0.04 VBG Lactate Sodium Potassium Chloride Carbon Dioxide Anion Gap BUN Creatinine Estimated GFR/1.73 m2 Glucose Calcium Total Bilirubin AST ALT Alkaline Phosphatase Total Protein Albumin Lipase Urine Color Urine Clarity Urine pH Ur Specific [place] Urine Protein Urine Ketones Urine Blood Urine Nitrite Urine Bilirubin Urine Urobilinogen Ur Leukocyte Esterase Urine RBC Urine WBC Ur Epithelial Cells Urine Crystals Urine Bacteria Urine Casts Urine Mucus Urine Other Ur Culture Indicated? Urine Glucose COVID-19 Source SARS-CoV-2 (PCR)
[2021-10-25] MEDS: Lactated Ringers 1,000 ML 30 ML IV (07:30)
[2021-10-25] MEDS: Omnipaque 300 MG/ML 50 ML BTL (07:50)
[2021-10-25] MEDS: Lidocaine 2% Jelly 6 ML SYR (07:50)
--- NOTE | 2021-10-25 08:07 | DI.RAD_ITS ---
Exam(s) XR RETROGRADE IN OR EXAM: XR RETROGRADE IN OR CLINICAL HISTORY: KIDNEY STONE LEFT TECHNIQUE: 2D and realtime digital imaging was performed. CONTRAST MATERIAL: Refer to procedure report. COMPARISON: No exams were available for comparison FINDINGS: Fluoroscopy was provided for Dr. Mitchell during the performance of a retrograde evaluation of the loly l collecting system. Please refer to the procedure report for complete details. Ka,r=8.05 mGy IMPRESSION: RADIATION DOSE DELIVERED:
--- NOTE | 2021-10-25 08:18 | PDOC.DSDIS_ITS ---
Discharge Plan Disposition Patient Disposition: HOME Condition: Improving Discharge Details Reason For Visit: Urolithasis, Elevated Creatinine Attending Provider: Jeff Mitchell Primary Care Provider: Julián Quispe Home Meds and New Rx's Prescriptions: New phenazopyridine [Pyridium] 200 mg tablet 200 mg PO TID PRN (Reason: pain/burning) Qty: 10 0RF tramadol 50 mg tablet 50 mg PO Q8H PRN (Reason: pain) Qty: 15 0RF ciprofloxacin HCl [Cipro] 250 mg tablet 250 mg PO BID Qty: 14 0RF No Action losartan 50 mg tablet 50 mg PO DAILY 0RF allopurinol 100 mg tablet 50 mg PO DAILY 0RF Discharge Instructions Additional Instructions: pt will need BUN and creatinine check on Saturday 10/28 - can either be drawn at [facility] or here at [facility] as long as results are faxed to me (lab orders placed in out patient EMR) Activity:: Activity as Tolerated Shower/Bathe:: 24 hours Diet:: As Tolerated DS: Diagnosis Discharge Diagnosis (1) Elevated serum creatinine: Status: Acute (2) Left ureteral stone: Status: Acute (3) Uric acid renal calculus: Status: Acute (4) RUQ abdominal mass: Status: Acute
--- NOTE | 2021-10-25 08:36 | ROE_ITS ---
Date of service: 10/25/21 Time of Service: 08:36 Operative Note Operative Note DATE OF PROCEDURE: 10/25/21 PRE-OP DIAGNOSIS: Ureteral stone Elevated serum creatinine POST-OP DIAGNOSIS: same PROCEDURE: Cystoscopy, left retrograde pyelogram, insert left ureteral stent SURGEON: Jeff Mitchell ANESTHESIA TYPE: General:No Airway Refer to Anesthesia Record ESTIMATED BLOOD LOSS: 5 PATHOLOGY: none sent Patient was transported to: PACU Patient's condition: stable Implants: 6 [place] by 22-30 cm left ureteral stent Indications: This is a 66-year-old gentleman who has a history of kidney stones dating back to the age of 22. His initial stone was calcium oxalate, but since then, his stones have been uric acid in composition. He presented to the emergency department last evening with an inability to void. He developed some right flank pain about 2 or 3 days ago. Over the last 24 hours he has had nausea but no fever or chills. On evaluation, he was found to have an elevated serum creatinine of 4 (his baseline was 1.1 a few months ago) he passed some stone fragments during his emergency department encounter and his right flank pain improved. A CT scan demonstrated changes on the right side consistent with a recently passed stone along with an obstructing left ureteral stone. With hydration, his serum creatinine improved to 3.7. He presents for stent placement on the left side to relieve any obstruction. Findings: Obstructing left proximal ureteral stone Procedure Description: The patient was brought from the emergency department to the operating room. He was given an additional dose of IV antibiotics. He had received a dose of ceftriaxone last evening. After successful induction of general anesthesia without intubation, he was placed in the dorsal lithotomy position. His genitalia was prepped and draped. 2% Xylocaine jelly was instilled into the urethra to act as a local anesthetic. A 22 [place] rigid cystoscope was passed through the urethra into the bladder. The urethra and bladder were inspected with a 30 degree lens. The pendulous, bulbar and membranous urethra's appeared normal with no strictures. The prostatic urethra showed an elevated bladder neck with mild lateral lobe enlargement. No median lobe of the bladder was identified. The bladder neck was entered and the bladder mucosa was inspected. A few small stone fragments were identified within the bladder. The left ureteral orifice was identified. Peristalsis of the orifice was noted but no E flux was seen from the left side. I then cannulated the left ureteral orifice with an access catheter and injected Omnipaque through the access catheter under fluoroscopic guidance. The retrograde pyelogram demonstrated a high-grade obstruction from a left proximal ureteral filling defect. The filling defect was radiolucent, so I suppose it will be a uric acid stone. I was then able to maneuver a Glidewire through the access catheter up the ureter and passed the obstructing lesion. I further advanced the access cath eter and was able to inject additional contrast in order to outline the dilated collecting system on the left. I removed the access catheter and a large amount of E flux was seen coming around the guidewire. I then passed a 6 [place] ureteral stent over the wire. The stent was of variable length from 22 to 30 cm. The stent was positioned such that the proximal end was curled in the renal pelvis and the distal end was curled within the bladder. The positioning of the stent was confirmed both fluoroscopically and cystoscopically. The bladder was then emptied and the scope was removed. The patient tolerated this procedure well. We will plan on rechecking his serum creatinine in 2 to 3 days to ensure it has returned to its baseline. He will also initiate a plan to return to the operating room for cystoscopy, stent removal and possible ureteroscopy to address the ureteral stone.
[2021-10-25] MEDS: Phenazopyridine 200 MG TAB PO (08:45)
--- NOTE | 2021-10-25 10:36 | W.ANESPOSTOP ---
Postoperative Evaluation Date, Time and Location Date Performed: 10/25/21 Time Performed: 10:36 Patient Location: Day Surgery Unit Vital Signs Most Recent Imported Vital Signs: Most Recent Vital Signs Temp Pulse Resp BP Pulse Ox 36.5 C 66 16 146/86 H 100 10/25/21 08:38 10/25/21 08:38 10/25/21 08:38 10/25/21 08:38 10/25/21 08:38 Pain Score Most Recent Pain Score: Most Recent Pain Score Pain Level 0 10/25/21 08:38 Assessment Mental Status: Awake (Alert & Oriented to Patient Baseline) Airway and Respiratory Function: Patent airway with normal (patient baseline) respiratory exam Cardiovascular Function: Hemodynamically Stable Hydration Status: Adequately Hydrated Nausea & Vomiting: No Nausea or Vomiting Pain: Pt. Denies Any Pain Peripheral Nerve Block: Patient did not receive a nerve block
[2021-10-29 22:21] LABS: Source: Passed Stone
== END 2021-10-25 09:54 | disposition home or self-care (01) ==
LOC: ER 10-25 06:59 → SUR 10-25 07:29 → ER 11-15 12:26
PROVIDERS: Family Medicine; Physician Assistant; PCP Family Medicine; Visit Provider Urology
PROC: (CPT 74450; principal; 2021-10-25 07:30)
DX: N20.1 Calculus of ureter (principal); I12.9 Hypertensive chronic kidney disease with stage 1 through stage 4 chronic kidney disease, or unspecified chronic kidney disease; N18.9 Chronic kidney disease, unspecified
CPT/HCPCS: 52332; 36415; 80048; 80053; 83690; 87040; 87635; 96361; 96365; 96372; 96375; 99284; 99285; 74176; 74420; 81003; 81015; 82365; 83605; 85025; 87086; 99222; J0690; J1100; J1650; J1885; J2250; J2405; Q9967

== ENCOUNTER 2021-10-28 15:04 | Outpatient (CLI) | payer OTHER, SELFPAY ==
[2021-10-28 14:11] LABS: BUN 26 mg/dL (7-18); CREATININE 1.6 mg/dL (0.70-1.30); Estimated GFR 43.74 (mL/min/1.73m2)
== END 2021-10-28 15:05 | disposition home or self-care (01) ==
PROVIDERS: PCP Family Medicine; Visit Provider Urology
DX: R79.89 Other specified abnormal findings of blood chemistry (principal)
CPT/HCPCS: 84520; 82565

== ENCOUNTER 2021-11-01 01:04 | Outpatient (CLI) | payer OTHER, SELFPAY ==
[2021-11-01 13:41] LABS: Source Nasal/Nares
[2021-11-01 21:40] LABS: COVID-19 PCR Negative (Negative)
== END 2021-11-01 01:05 | disposition home or self-care (01) ==
LOC: LBO 01:04
PROVIDERS: PCP Family Medicine; Visit Provider Urology
DX: Z20.822 Contact with and (suspected) exposure to COVID-19 (principal); Z01.818 Encounter for other preprocedural examination
CPT/HCPCS: 87635

== ENCOUNTER 2021-11-04 07:05 | Day surgery (SDC) | payer OTHER, SELFPAY ==
[2021-11-04 07:41] VITALS: BP 136/77; PULSE 79; RESP 16; TEMP 36.5; O2SAT 97
[2021-11-04 07:54] VITALS: BMI 31.3
--- NOTE | 2021-11-04 07:54 | W.ANESPRE ---
General Info Date of Service Date Performed: 11/04/21 Height: 5 ft 11.8 in Weight: 104.1 kg Body Mass Index (BMI): 31.3 Surgical Procedure: Operation Date: 11/04/21 08:25 Proposed Procedure Side Surgeon p Cystoscopy/Poss.Laser/Retrograde/Poss.Ureteroscopy/Stent Removal Left Jeff Mitchell MD Meds Allergies and Home Medications Allergies Allergy/AdvReac Type Severity Reaction Status Date / Time No Known Allergies Allergy Unverified 11/04/21 07:32 Home Medication Medication Instructions Recorded allopurinol 100 mg tablet 100 mg PO DAILY tab 10/24/21 losartan 50 mg tablet 50 mg PO DAILY 10/24/21 ciprofloxacin HCl 250 mg tablet 250 mg PO BID #14 tab 10/25/21 (Cipro) phenazopyridine 200 mg tablet 200 mg PO TID PRN #10 tab 10/25/21 (Pyridium) tramadol 50 mg tablet 50 mg PO Q8H PRN 11/01/21 ibuprofen 400 mg tablet 400 mg BID 11/04/21 Current Visit Medications: Current Medications Generic Name Dose Route Start Last Admin Trade Name Freq PRN Reason Stop Dose Admin Ringer's Solution 1,000 mls @ 80 mls/hr 11/04/21 06:00 IV 12/01/21 23:59 INFUSION DAVE Cefazolin Sodium/Dextrose 2 gm in 50 mls @ 100 mls/hr 11/04/21 06:00 Ancef Duplex IVPB 11/04/21 16:00 PREOP DAVE IV Miscellaneous Supplies 1 each 11/04/21 06:00 Iv Access IV 12/01/21 23:59 DIRECTED DAVE Sodium Chloride 0 ml 11/04/21 06:00 Normal Saline Flush 10 Ml Syr IV 12/01/21 23:59 PRN PRN Sodium Chloride 0 ml 11/04/21 06:00 Normal Saline 10 Ml Vial IJ 12/01/21 23:59 DIRECTED PRN Sterile Water 0 ml 11/04/21 06:00 Water,Injection,Sterile 10 Ml Vial IJ 12/01/21 23:59 DIRECTED PRN PFSH Active Problems Active Problems: Problem Status Onset Code HTN (hypertension) I10 CKD (chronic kidney disease) N18.9 Prediabetes R73.03 Myalgia M79.10 Somnolence R40.0 BPH w urinary obs/LUTS N40.1, N13.8 Uric acid renal calculus N20.0 Osteoarthritis M19.90 Pain, joint, knee, right M25.561 Rotator cuff syndrome of left shoulder M75.102 Venous insufficiency I87.2 Obesity E66.9 Left ureteral stone N20.1 Elevated serum creatinine R79.89 RUQ abdominal mass R19.01 Medical History Medical History (Updated 11/04/21 @ 07:38 by Sheela Schmidt) History of kidney stones Hypertension Surgical History Surgical History (Updated 11/04/21 @ 07:39 by Sheela Schmidt) History of arthroscopic knee surgery History of colonoscopy History of shoulder surgery rt shoulder, pin in left shoulder after fracture History of surgery placement of stent d/t kidney stone Hx of arthroscopic knee surgery R knee Hx of knee surgery Tobacco Smoking/Tobacco Use Status: Never Alcohol Alcohol Intake: never Substance Use Substance use: Never Substance use type: does not use Vital Signs and Lab Results Vital Signs Most Recent Vital Signs in EMR: Most Recent Vital Signs Temp Pulse Resp BP Pulse Ox 36.5 C 79 16 136/77 97 11/04/21 07:41 11/04/21 07:41 11/04/21 07:41 11/04/21 07:41 11/04/21 07:41 Lab Results Blood Type / Crossmatch: No Data to Display Complete Blood Count: White Blood Count 5.60 10^3/uL (4.4-10.8) 10/25/21 05:38 10/25/21 Red Blood Count 3.79 10^6/uL (4.36-5.78) L 10/25/21 05:38 10/25/21 Hemoglobin 10.6 g/dL (13.5-17.5) L 10/25/21 05:38 10/25/21 Hematocrit 32.7 % (40.0-50.0) L 10/25/21 05:38 10/25/21 Platelet Count 293 10^3/uL (130-400) 10/25/21 05:38 10/25/21 Venous Blood Lactate 0.8 mmol/L (0.6-1.4) 10/24/21 22:30 10/24/21 Complete Metabolic Panel: Sodium Level 144 mmol/L (136-145) 10/25/21 05:38 10/25/21 Potassium Level 4.3 mmol/L (3.5-5.1) 10/25/21 05:38 10/25/21 Chloride Level 109 mmol/L (98-107) H 10/25/21 05:38 10/25/21 Carbon Dioxide Level 24.4 mmol/L (21.0-32.0) 10/25/21 05:38 10/25/21 Blood Urea Nitrogen 26 mg/dL (7-18) H 10/28/21 13:50 10/28/21 Creatinine 1.6 mg/dL (0.70-1.30) H 10/28/21 13:50 10/28/21 Estimated GFR/1.73 m2 43.74 (mL/min/1.73m2) 10/28/21 13:50 10/28/21 Calcium Level 8.7 mg/dL (8.5-10.1) 10/25/21 05:38 10/25/21 Albumin 3.7 g/dL (3.4-5.0) 10/24/21 19:43 10/24/21 Glucose Level 99 mg/dL (74-106) 10/25/21 05:38 10/25/21 Liver Function Panel: Alanine Aminotransferase (ALT/SGPT) 26 U/L (16-63) 10/24/21 19:43 10/24/21 Aspartate Amino Transf (AST/SGOT) 16 U/L (15-37) 10/24/21 19:43 10/24/21 Coagulation Panel: No Data to Display Cardiac Panel: No Data to Display Arterial Blood Gas: No Data to Display Venous Blood Gas: No Data to Display Pancreas Panel: Lipase 582 U/L (73-393) H 10/24/21 19:43 10/24/21 Thyroid Panel: No Data to Display Infectious Disease: Coronavirus (COVID-19)(PCR) Negative (Negative) 11/01/21 08:18 11/01/21 Coronavirus 2019 Source Nasal/Nares 11/01/21 08:18 11/01/21 Blood Cultures: No Data to Display Toxicology Panel: No Data to Display Anesthesia Assessment and Plan Anesthesia History Personal History: No History of Anesthesia Complications Family History: No Family History of Anesthesia Complications Exercise Tolerance Exercise Tolerance: Metabolic Equivalents>4 Pertinent Negatives Pertinent Negatives: No Symptoms of GERD, No Major Cardiovascular Symptoms or Complaints and No Major Pulmonary Symptoms or Complaints Cardiac & Pulmonary Exam Cardiac Exam: Normal S1/S2 Heart Sounds Pulmonary Exam: Clear Bilateral Breath Sounds Implantable Cardiac Device Does patient have a Pacemaker or an ICD?: No Airway Exam Known Difficult Airway: No Mallampati Class: 2 Mouth Opening: Normal (> 3cm) Thyromental Distance: Less than 3 cm Neck Range of Motion: Full ROM Neck Circumference: Normal Teeth Condition: Normal Dentition ASA Classification ASA Score: ASA 3 Emergency Case?: No NPO Status NPO Status: NPO Clears >2 hours, Solids >8 hours Anesthesia Plan Resuscitation Status: Full Code Anesthesia Technique: General Anesthesia Airway Planned: Natural Airway Monitors Used: Standard Monitors
[2021-11-04] MEDS: Lactated Ringers 1,000 ML 80 ML IV (08:00)
--- NOTE | 2021-11-04 08:00 | HPE_ITS ---
Date of service: 11/04/21 Time of Service: 08:00 Assessment and Plan Assessment and plan (1) Left ureteral stone: Status: Acute Assessment and plan: We will move foreward with ureteroscopy and stone manipulation. History of Present Illness History of Present Illness Chief Complaint: Ureteral stone Narrative: This is a 66 year old man who has a long history of kidney stones. He recently presented to our ER with bilateral ureteral stones. His serum creatinine was 4 and his urinalysis was worrisome for infection. He passed the right ureteral stone and I placed a left ureteral stent. His serum creatinine has improved. He presents for ureteroscopy and stone manipul ation. His urine and blood cultures were ultimately negative for bacterial growth. His passed stone was 90% uric acid and 10% calcium oxalate dihydrate. Review of Systems Narrative: No fevers or chills No vision change or dysphasia No diabetes or thyroid No shortness of breath, cough or hemoptysis No chest pain or palpitations Hx elevated lipase. No hepatitis, ulcers, jaundice No seizures, strokes or peripheral neuropathy No bleeding disorders or anemia No gout PFSH All Active Problems (Updated 11/04/21 @ 07:38 by Sheela Schmidt) HTN (hypertension) (Chronic) CKD (chronic kidney disease) (Chronic) Prediabetes (Acute) Myalgia (Acute) Somnolence (Acute) BPH w urinary obs/LUTS (Acute) Uric acid renal calculus (Acute) Osteoarthritis (Chronic) Pain, joint, knee, right (Acute) Rotator cuff syndrome of left shoulder (Acute) Venous insufficiency (Acute) Obesity (Chronic) Left ureteral stone (Acute) Elevated serum creatinine (Acute) RUQ abdominal mass (Acute) Medical History (Updated 11/04/21 @ 07:38 by Sheela Schmidt) History of kidney stones Hypertension Surgical History (Updated 11/04/21 @ 07:39 by Sheela Schmidt) History of arthroscopic knee surgery History of colonoscopy History of shoulder surgery rt shoulder, pin in left shoulder after fracture History of surgery placement of stent d/t kidney stone Hx of arthroscopic knee surgery R knee Hx of knee surgery Social History Smoking/Tobacco Use Status: Never Smoking risk assessment performed?: Yes Alcohol Intake: never Drug use: Never Substance use type: does not use Do you feel safe at home: Yes Do you feel safe in your relationship?: Yes Meds Allergies and Home Medications Allergies Allergy/AdvReac Type Severity Reaction Status Date / Time No Known Allergies Allergy Unverified 11/04/21 07:32 Home Medications Medication Instructions Recorded Confirmed Type allopurinol 100 mg tablet 100 mg PO DAILY tab 10/24/21 11/04/21 History losartan 50 mg tablet 50 mg PO DAILY 10/24/21 11/04/21 History ciprofloxacin HCl 250 mg tablet 250 mg PO BID #14 tab 10/25/21 11/04/21 Rx (Cipro) phenazopyridine 200 mg tablet 200 mg PO TID PRN #10 tab 10/25/21 11/04/21 Rx (Pyridium) tramadol 50 mg tablet 50 mg PO Q8H PRN 11/01/21 11/04/21 History ibuprofen 400 mg tablet 400 mg BID 11/04/21 11/04/21 History Exam Const General: cooperative Neck Neck: supple Resp Effort & Inspection: normal respiratory effort Auscultation: clear to auscultation bilaterally Cardio Rate: regular rate Rhythm: regular rhythm GI Palpation: soft and no masses Neuro General: patient alert, patient awake and patient oriented x3 Results Last Vital Signs Temp 36.5 C 11/04/21 07:41 Pulse 79 11/04/21 07:41 Resp 16 11/04/21 07:41 BP 136/77 11/04/21 07:41 Pulse Ox 97 11/04/21 07:41
[2021-11-04] MEDS: ceFAZolin 2 GM/50 ML BAG IVPB (08:47)
[2021-11-04] MEDS: Lidocaine 2% Jelly 6 ML SYR (09:03)
--- NOTE | 2021-11-04 09:27 | DI.RAD_ITS ---
Exam(s) XR RETROGRADE IN OR EXAM: XR RETROGRADE IN OR CLINICAL HISTORY: LEFT URETERAL STONE TECHNIQUE: 2D and realtime digital imaging was performed. CONTRAST MATERIAL: Refer to procedure report. COMPARISON: No exams were available for comparison FINDINGS: Fluoroscopy was provided for Dr. Mitchell during the performance of a retrograde evaluation of the loly l collecting system. Please refer to the procedure report for complete details. Ka,r=8.64 mGy IMPRESSION: RADIATION DOSE DELIVERED:
[2021-11-04] MEDS: Omnipaque 300 MG/ML 50 ML BTL (09:28)
--- NOTE | 2021-11-04 09:37 | W.PM.DSUDISC ---
Discharge Plan Disposition Patient Disposition: HOME Condition: Stable Discharge Details Reason For Visit: ureteroscopy Attending Provider: Jeff Mitchell Primary Care Provider: Julián Quispe Home Meds and New Rx's Prescriptions: No Action losartan 50 mg tablet 50 mg PO DAILY 0RF allopurinol 100 mg tablet 100 mg PO DAILY 0RF phenazopyridine [Pyridium] 200 mg tablet 200 mg PO TID PRN (Reason: pain/burning) Qty: 10 0RF ciprofloxacin HCl [Cipro] 250 mg tablet 250 mg PO BID Qty: 14 0RF tramadol 50 mg tablet 50 mg PO Q8H PRN (Reason: pain) 0RF ibuprofen 400 mg Tablet 400 mg BID 0RF Discharge Instructions Additional Instructions: resume all home medications F/U stent removal 2 to 3 days (tell my office pt has string on stent) F/U appt in 6 to 8 weeks with renal US no need to strain urine Activity:: Activity as Tolerated Shower/Bathe:: 24 hours Diet:: As Tolerated DS: Diagnosis Discharge Diagnosis (1) Left ureteral stone: Status: Acute
--- NOTE | 2021-11-04 09:42 | ROE_ITS ---
Date of service: 11/04/21 Time of Service: 09:43 Operative Note Operative Note DATE OF PROCEDURE: 11/04/21 PRE-OP DIAGNOSIS: left ureteral stone POST-OP DIAGNOSIS: same PROCEDURE: cystoscopy, remove left ureteral stent, left retrograde pyelogram, left flexible ureteroscopy with holmium laser lithotripsy, extraction of stone fragments, insert left ureteral stent SURGEON: Jeff Mitchell ANESTHESIA TYPE: General:No Airway Refer to Anesthesia Record ESTIMATED BLOOD LOSS: 10 PATHOLOGY: other (stone for chemical analysis) Patient was transported to: same day Patient's condition: stable Implants: 4.8 [place] by 22 to 30 cm left ureteral stent with safety string anchored to dorsum of penis Indications: This is a 66-year-old gentleman who has a history of previous kidney stones. He presented to our emergency department last week with an inability to void. At that time, his serum creatinine had increased to 4. He was found to have bilateral ureteral stones. He passed the right-sided stone, and had a stent placed for the left-sided stone. His renal function has improved. His urine and blood culture showed no bacterial growth. He presents now for stone manipulation. Findings: Left proximal ureteral stone Procedure Description: The patient was given preoperative IV antibiotics. He was brought to the operating room on 11/04/2021. After successful induction of general anesthesia without intubation, he was placed in the dorsal lithotomy position. His genitalia was prepped and draped. 2% Xylocaine jelly was instilled into the urethra to act as a local anesthetic. A 22 [place]ian rigid cystoscope was passed through the urethra into the bladder. The urethra and bladder was inspected using a 30 degree lens. The pendulous, bulbar and membranous urethra was all appeared normal with no strictures. The prostatic urethra showed some lateral lobe enlargement. Upon entering the bladder neck, the stent could be seen protruding from the left ureteral orifice. The stent was grasped with alligator forceps and the stent was withdrawn to the level of the urethral meatus. A Glidewire was advanced through the lumen of the stent and the stent was removed leaving the wire in place. An access catheter was then advanced over the wire into the ureter. The wire was removed leaving the access catheter in place. A retrograde pyelogram was then performed by injecting Omnipaque through the access catheter under fluoroscopic guidance. A large proximal left ureteral filling defect was again identified. The filling defect was in a similar location to last week when we placed his initial ureteral stent. A Glidewire was then passed back through the lumen of the access catheter. The catheter was removed and was replaced with a dual-lumen catheter. A second wire was then positioned and the dual-lumen catheter was removed. We chose one of the wires as a working wire and the other as a safety wire. A ureteral access sheath was then advanced over the working wire. A flexible ureteroscope was passed through the access sheath up to the level of the stone. There was quite a bit of edema in the ureter surrounding the stone. I was able to use a 365 micron holmium laser fiber to treat the stone. We used a power setting of 200 and a rate of 8. The stone fragmented and dusted quite easily. The largest stone fragments were then grasped in a 0 tip stone basket and removed in their entirety. The stone fragments were sent to pathology for chemical analysis. Once the largest stone fragments were removed, we elected to place a ureteral stent back in the ureter. We chose a 4.8 [place]ian variable length stent and advanced it over the safety wire. The proximal end of the stent was curled in the left renal pelvis and the distal end was curled within the bladder. The positioning of the stent was confirmed both fluoroscopically and cystoscopically. The safety string remained attached to the stent. The string was brought through the patient's urethra and the end of the string was anchored to the dorsum of the penis using a Steri-Strip. The patient tolerated the procedure well with no complications.
[2021-11-04 09:44] VITALS: BP 114/72; PULSE 74; RESP 16; TEMP 36.5; O2SAT 97
[2021-11-04 10:18] VITALS: BP 137/76; PULSE 67; RESP 16; TEMP 36.3; O2SAT 96
[2021-11-04] MEDS: Phenazopyridine 200 MG TAB PO (10:20)
[2021-11-04] MEDS: traMADol 50 MG TAB PO (10:23)
--- NOTE | 2021-11-04 10:45 | W.ANESPOSTOP ---
Postoperative Evaluation Date, Time and Location Date Performed: 11/04/21 Time Performed: 10:45 Patient Location: Day Surgery Unit Vital Signs Most Recent Imported Vital Signs: Most Recent Vital Signs Temp Pulse Resp BP Pulse Ox 36.3 C L 67 16 137/76 96 11/04/21 10:18 11/04/21 10:18 11/04/21 10:18 11/04/21 10:18 11/04/21 10:18 Pain Score Most Recent Pain Score: Most Recent Pain Score Pain Level 4 11/04/21 10:18 Assessment Mental Status: Awake (Alert & Oriented to Patient Baseline) Airway and Respiratory Function: Patent airway with normal (patient baseline) respiratory exam Cardiovascular Function: Hemodynamically Stable Hydration Status: Adequately Hydrated Nausea & Vomiting: No Nausea or Vomiting Pain: Pain is tolerable per patient Peripheral Nerve Block: Patient did not receive a nerve block
[2021-11-06 14:10] LABS: Interpretation 100% Uric acid; Source: Left Ureter
== END 2021-11-04 11:43 | disposition home or self-care (01) ==
PROVIDERS: PCP Family Medicine; Visit Provider Urology
PROC: (CPT 52356; principal; 2021-11-04 08:15)
DX: N20.1 Calculus of ureter (principal); I12.9 Hypertensive chronic kidney disease with stage 1 through stage 4 chronic kidney disease, or unspecified chronic kidney disease; N18.9 Chronic kidney disease, unspecified; E66.9 Obesity, unspecified
CPT/HCPCS: 52356; 74420; 82365; J0690; J1100; J1885; J2405; J2704; Q9967

== ENCOUNTER 2021-12-30 15:02 | Outpatient (REF) | payer OTHER, SELFPAY ==
[2021-12-30 17:04] LABS: BUN 23 mg/dL (7-18); CREATININE 1.1 mg/dL (0.70-1.30); Potassium 4.1 mmol/L (3.5-5.1)
== END 2021-12-30 15:03 | disposition home or self-care (01) ==
LOC: LBN 15:02
PROVIDERS: PCP Family Medicine; Visit Provider Nurse Practitioner Gerontology
DX: N20.0 Calculus of kidney (principal)
CPT/HCPCS: 84520; 82565; 84132

== ENCOUNTER 2022-03-11 10:48 | Outpatient (REF) | payer OTHER, SELFPAY ==
[2022-03-11 11:21] LABS: Potassium 4.4 mmol/L (3.5-5.1)
== END 2022-03-11 10:49 | disposition home or self-care (01) ==
LOC: LBN 10:48
PROVIDERS: PCP Family Medicine; Visit Provider Nurse Practitioner Gerontology
DX: N20.0 Calculus of kidney (principal)
CPT/HCPCS: 84132

== ENCOUNTER 2022-06-30 15:55 | Outpatient (REF) | payer OTHER, SELFPAY ==
[2022-06-30 15:15] LABS: Potassium 4.2 mmol/L (3.5-5.1)
== END 2022-06-30 15:56 | disposition home or self-care (01) ==
LOC: LBN 15:55
PROVIDERS: PCP Family Medicine; Visit Provider Nurse Practitioner Gerontology
DX: N20.0 Calculus of kidney (principal)
CPT/HCPCS: 84132

== ENCOUNTER 2022-10-16 02:38 | Outpatient (CLI) | payer OTHER, SELFPAY ==
[2022-10-16 07:35] LABS: Estimated GFR 22.35 (mL/min/1.73m2)
--- NOTE | 2022-10-16 08:09 | DI.CT_ITS ---
Exam(s) CT ABDOMEN PELVIS WO EXAM: CT ABDOMEN PELVIS WO CLINICAL HISTORY: Gross hematuria,Hx of renal calculi, RLQ pain. TECHNIQUE: Imaging Protocol: Axial computed tomography images with coronal and sagittal reformatted images were created and reviewed CONTRAST MATERIAL: Intravenous: none Oral: None COMPARISON: CT CT ABDOMEN PELVIS WO from 10/24/2021 FINDINGS: VISUALIZED LUNG BASES: No nodules nor pleural effusions evident. ABDOMEN: There is no ascites. LIVER: Liver is hypodense implying steatosis. There no discrete focal hepatic lesions identified. GALLBLADDER/BILIARY: Small calcified gallstones are noted. No gallbladder wall edema nor pericholecy stic fluid. CBD is not dilated. PANCREAS: No evidence of pancreatic mass nor dilatation of the pancreatic duct. SPLEEN: Spleen is not enlarged. No obvious intrasplenic lesions. ADRENALS: There are no significant adrenal masses. KIDNEYS:There are calculi in both kidneys. The largest is in the left renal pelvis, measuring 11 by 5 mm. However, there also calculi in both ureters. On the right side there is mild hydronephrosis a nd hydroureter due to an obstructing 7 x 5 millimeter calculus at the junction of the mid and lower t hirds of the right ureter-pelvic brim level. Ureter below this level is normal caliber and there are no calculi at the ureterovesical junction nor within the nondistended urinary bladder. On the opposite side there is nephrolithiasis but there is also a 3-4 millimeter calculus in the uppe r left ureter or at the left UPJ level. Minimal dilatation above this level. I note that a larger c alculus was evident at this location on the prior CT scan of 1 year ago. Left ureter below this leve l is not dilated and there are no calculi at the left UVJ nor in the urinary bladder. Prostate not enlarged. Seminal vesicles unremarkable. ABDOMINAL AORTA: Abdominal aorta is not enlarged. LYMPH NODES: There is no retroperitoneal nor paraaortic adenopathy. ABDOMINAL WALL: There is a fat containing anterior abdominal wall midline umbilical hernia. No bowel loops therein. No bowel obstruction. GI: There is no evidence of bowel obstruction, free air, nor abscess. PELVIS: LYMPH NODES: There is no intrapelvic nor inguinal adenopathy. GI: No evidence of appendicitis.There are few sigmoid diverticula but no diverticulitis evident. URINARY BLADDER: No calculi nor obvious masses evident REPRODUCTIVE: Prostate not enlarged. Seminal vesicles unremarkable. OSSEOUS: No significant osseous lesions. IMPRESSION: 1. Bilateral nephrolithiasis. There is also an obstructing 7 x 5 millimeter calculus at the junction of the mid and distal thirds of the right ureter and there is a smaller partially obstructive 3 mill imeter calculus in the upper left ureter at the UPJ level. 2. Additional calculi are also seen in both kidneys. No calculi in the urinary bladder. Bladder sindy ears unremarkable and is not distended. Prostate not enlarged. 3. Cholelithiasis but no evidence of acute cholecystitis nor dilatation of the biliary tree. Other findings as above. Stat fax. RADIATION DOSE DELIVERED: 1,325.05mGy.cm Total DLP DATA REPOSITORY: All CT scans at this facility are submitted to the National Radiology Data Registry (NRDR) Dose Index Registry (DIR) with the [employer] ([employer]). RADIATION OPTIMIZATION: All CT scans at this facility use at least one of these dose optimization te chniques: automated exposure control; mA and/or kV adjustment per patient size (includes targeted exa ms where dose is matched to clinical indication); or iterative reconstruction.
== END 2022-10-16 02:58 ==
PROVIDERS: PCP Family Medicine; Visit Provider Nurse Practitioner Gerontology
DX: R31.9 Hematuria, unspecified (principal); Z01.812 Encounter for preprocedural laboratory examination; R10.31 Right lower quadrant pain; K76.0 Fatty (change of) liver, not elsewhere classified; N20.0 Calculus of kidney; N13.2 Hydronephrosis with renal and ureteral calculous obstruction; K80.20 Calculus of gallbladder without cholecystitis without obstruction
CPT/HCPCS: 74176; 82565

== ENCOUNTER 2023-02-23 14:55 | Outpatient (REF) | payer OTHER, SELFPAY ==
[2023-02-23 21:24] LABS: Abs Immature Grans 0.01 10^3/uL (0.0-0.06); Absolute Basophil Count 0.05 10^3/uL (0.0-0.2); Absolute Eosinophil Count 0.14 10^3/uL (0.0-0.7); Absolute Lymphocyte Count 2.76 10^3/uL (1.2-3.4); Absolute Monocyte Count 0.44 10^3/uL (0.1-0.8); Absolute Neutrophil Count 3.13 10^3/uL (1.2-6.7); Basophils % 0.8; Eosinophils % 2.1; HCT 38.1 % (40.0-50.0); HGB 12.7 g/dL (13.5-17.5); Immature Grans % 0.2; Lymphocytes % 42.3; MCH 28.9 pg (27.0-33.0); MCHC 33.3 % (32.0-36.0); MCV 87 fL (80-95); MPV 9.3 fL (8.0-11.0); Monocytes % 6.7; Neutrophils % 47.9; Platelet Count 287 10^3/uL (130-400); RBC 4.39 10^6/uL (4.36-5.78); RDW 12.1 % (11.8-14.1); RDW-SD 38.9 fL; WBC 6.53 10^3/uL (4.4-10.8)
[2023-02-23 21:37] LABS: ALT 30 U/L (16-63); AST 19 U/L (15-37); Albumin 4.1 g/dL (3.4-5.0); Alkaline Phosphatase 84 U/L (46-116); Anion Gap 7.4 mmol/L (3-11); BUN 26 mg/dL (7-18); Bilirubin, Total 0.3 mg/dL (0.2-1.0); CO2 28.6 mmol/L (21.0-32.0); CREATININE 1.5 mg/dL (0.70-1.30); Calcium 9.8 mg/dL (8.5-10.1); Chloride 106 mmol/L (98-107); Estimated GFR 51.35 (mL/min/1.73m2); Glucose 101 mg/dL (74-106); Potassium 4.7 mmol/L (3.5-5.1); Sodium 142 mmol/L (136-145); Total Protein 7.2 g/dL (6.4-8.2)
[2023-02-23 21:59] LABS: Hemoglobin A1C 5.6 % (<5.7)
[2023-02-25 09:54] LABS: Lyme Ab w Rflx to Lyme Confirm Negative (Negative)
[2023-02-27 09:39] LABS: Anaplasma phagocytophilum Positive (Negative); B. miyamotoi PCR Negative (Negative); Babesia divergens/MO-1 Negative (Negative); Babesia duncani Negative (Negative); Babesia microti Negative (Negative); Ehrlichia chaffeensis Negative (Negative); Ehrlichia ewingii/canis Negative (Negative); Ehrlichia muris eauclairensis Negative (Negative)
== END 2023-02-23 14:56 | disposition home or self-care (01) ==
LOC: NCHCN 14:55
PROVIDERS: PCP Family Medicine; Visit Provider Family Medicine
DX: Z00.00 Encounter for general adult medical examination without abnormal findings (principal); R73.03 Prediabetes; N18.30 Chronic kidney disease, stage 3 unspecified; I10 Essential (primary) hypertension; M25.562 Pain in left knee; M79.18 Myalgia, other site
CPT/HCPCS: 80053; 87798; 83036; 85025; 86618

== ENCOUNTER → 2023-02-25 12:21 | Outpatient (CLI) | payer OTHER, SELFPAY ==
--- NOTE | 2023-02-25 | DI.RAD_ITS ---
Exam(s) XR KNEE LT 3V AP,LAT,JENELLE EXAM: XR KNEE LT 3V AP,LAT,JENELLE CLINICAL HISTORY: LT KNEE PAIN, M25.562. TECHNIQUE: 2D digital imaging was performed. Three views. COMPARISON: No exams were available for comparison FINDINGS: BONES: No acute fracture is present. No bony destructive lesion is seen. JOINTS: The knee is normally aligned. No joint effusion is seen. Mild narrowing medial femoral tibial joint space. Mild periarticular spurring. Minimal patellar enthesophytes. Enthesophyte at tibial tubercle. SOFT TISSUE: Normal. IMPRESSION: Mild degenerative changes. DATA REPOSITORY: RADIATION DOSE DELIVERED:
== END ==
PROVIDERS: PCP Family Medicine; Visit Provider Family Medicine
DX: M17.12 Unilateral primary osteoarthritis, left knee (principal)
CPT/HCPCS: 73562

== ENCOUNTER 2023-08-25 15:31 | Outpatient (REF) | payer OTHER, SELFPAY ==
[2023-08-25 15:49] LABS: Anion Gap 7.5 mmol/L (3-11); BUN 30 mg/dL (7-18); CO2 27.5 mmol/L (21.0-32.0); CREATININE 1.4 mg/dL (0.70-1.30); Calcium 9.8 mg/dL (8.5-10.1); Chloride 108 mmol/L (98-107); Estimated GFR 55.43 (mL/min/1.73m2); Glucose 123 mg/dL (74-106); Potassium 4.1 mmol/L (3.5-5.1); Sodium 143 mmol/L (136-145)
== END 2023-08-25 15:32 | disposition home or self-care (01) ==
LOC: NCHCN 15:31
PROVIDERS: PCP Family Medicine; Visit Provider Family Medicine
DX: I10 Essential (primary) hypertension (principal); R73.03 Prediabetes
CPT/HCPCS: 80048; 83036

== ENCOUNTER → 2023-08-26 00:27 | Outpatient (CLI) | payer OTHER, SELFPAY ==
--- NOTE | 2023-08-26 | DI.RAD_ITS ---
Exam(s) XR CHEST 2V PA LATERAL EXAM: XR CHEST 2V PA LATERAL CLINICAL HISTORY: CHRONIC COUGH, R05.3 TECHNIQUE: 2D digital imaging was performed. COMPARISON: No exams were available for comparison FINDINGS: HEART: Normal size. Aorta: Not dilated. PULMONARY VASCULATURE: Normal. LUNGS: Clear. PLEURAL SPACE: No pleural effusion or pneumothorax. BONE:Unremarkable for age. Soft tissues: Unremarkable. IMPRESSION: No acute abnormality. DATA REPOSITORY: RADIATION DOSE DELIVERED:
== END ==
PROVIDERS: PCP Family Medicine; Visit Provider Family Medicine
DX: R05.3 Chronic cough (principal)
CPT/HCPCS: 71046

== ENCOUNTER 2024-02-25 16:00 | Outpatient (REF) | payer OTHER, SELFPAY ==
[2024-02-25 22:18] LABS: Hemoglobin A1C 5.8 % (<5.7)
[2024-02-25 22:19] LABS: ALT 38 U/L (16-63); AST 24 U/L (15-37); Alkaline Phosphatase 70 U/L (46-116); Anion Gap 10.4 mmol/L (3-11); BUN 23 mg/dL (7-18); Bilirubin, Total 0.32 mg/dL (0.2-1.0); CO2 28.6 mmol/L (21.0-32.0); CREATININE 1.5 mg/dL (0.70-1.30); Calcium 9.6 mg/dL (8.5-10.1); Chloride 106 mmol/L (98-107); Estimated GFR 51.03 (mL/min/1.73m2); Glucose 115 mg/dL (74-106); Potassium 4.9 mmol/L (3.5-5.1); Sodium 145 mmol/L (136-145); Total Protein 7.1 g/dL (6.4-8.2); Uric Acid 7.6 mg/dL (3.5-7.2)
== END 2024-02-25 16:01 | disposition home or self-care (01) ==
LOC: NCHCN 16:00
PROVIDERS: PCP Family Medicine; Visit Provider Family Medicine
DX: R73.03 Prediabetes (principal); I10 Essential (primary) hypertension; Z87.442 Personal history of urinary calculi
CPT/HCPCS: 80053; 83036; 84550

== ENCOUNTER 2024-09-01 12:40 | Outpatient (REF) | payer MEDICARE, OTHER, SELFPAY ==
[2024-09-01 14:01] LABS: Abs Immature Grans 0.02 10^3/uL (0.0-0.06); Absolute Basophil Count 0.05 10^3/uL (0.0-0.2); Absolute Eosinophil Count 0.24 10^3/uL (0.0-0.7); Absolute Monocyte Count 0.42 10^3/uL (0.1-0.8); Absolute Neutrophil Count 3.33 10^3/uL (1.2-6.7); Basophils % 0.8 %; Eosinophils % 3.8 %; HCT 42.8 % (40.0-50.0); HGB 14.5 g/dL (13.5-17.5); Immature Grans % 0.3 %; Lymphocytes % 35.1 %; MCH 29.7 pg (27.0-33.0); MCHC 33.9 % (32.0-36.0); MCV 88 fL (80-95); MPV 9.4 fL (8.0-11.0); Monocytes % 6.7 %; Neutrophils % 53.3 %; Platelet Count 255 10^3/uL (130-400); RBC 4.88 10^6/uL (4.36-5.78); RDW 12.2 % (11.8-14.1); RDW-SD 39.2 fL; WBC 6.26 10^3/uL (4.4-10.8)
[2024-09-01 16:06] LABS: ALT 36 U/L (16-63); AST 21 U/L (15-37); Alkaline Phosphatase 72 U/L (46-116); Anion Gap 8.3 mmol/L (3-11); BUN 26 mg/dL (7-18); Bilirubin, Total 0.42 mg/dL (0.2-1.0); CO2 27.7 mmol/L (21.0-32.0); CREATININE 1.5 mg/dL (0.70-1.30); Calcium 9.9 mg/dL (8.5-10.1); Chloride 108 mmol/L (98-107); Estimated GFR 50.71 (mL/min/1.73m2); Glucose 121 mg/dL (74-106); LDL CHOLESTEROL 118 mg/dL (<100); Potassium 4.4 mmol/L (3.5-5.1); Sodium 144 mmol/L (136-145)
== END 2024-09-01 12:41 | disposition home or self-care (01) ==
LOC: NCHCN 12:40
PROVIDERS: PCP Family Medicine; Visit Provider Family Medicine
DX: N18.30 Chronic kidney disease, stage 3 unspecified (principal)
CPT/HCPCS: 80053; 83721; 85025

== ENCOUNTER 2025-02-28 17:36 | Outpatient (REF) | payer MEDICARE, OTHER, SELFPAY ==
[2025-02-28 17:56] LABS: Anion Gap 6.8 mmol/L (3-11); BUN 27 mg/dL (7-18); CO2 31.2 mmol/L (21.0-32.0); Calcium 9.6 mg/dL (8.5-10.1); Chloride 104 mmol/L (98-107); Estimated GFR 60.21 (mL/min/1.73m2); Glucose 107 mg/dL (74-106); Potassium 4.4 mmol/L (3.5-5.1); Sodium 142 mmol/L (136-145); Uric Acid 6.9 mg/dL (3.5-7.2)
== END 2025-02-28 17:37 | disposition home or self-care (01) ==
LOC: NCHCN 17:36
PROVIDERS: PCP Family Medicine; Visit Provider Family Medicine
DX: I10 Essential (primary) hypertension (principal)
CPT/HCPCS: 80048; 84550